=== PATIENT | female | born 2000 | race Hispanic/Latino ===

== ENCOUNTER 2018-04-09 18:25 | Inpatient (IN) | payer OTHER, SELFPAY ==
[~2018-04-09 18:25] MED LIST: ISOVUE-370 76%-LOCM 1 ML ONE
[2018-04-09] MEDS ORDERED: Acetaminophen 325 MG TAB ONE (18:38)
[2018-04-09] MEDS ORDERED: Ibuprofen 200 MG TAB ONE (18:38)
[2018-04-09] MEDS ORDERED: Ondansetron ODT 4 MG TAB ONE (18:46)
[2018-04-09 20:36] LABS: Anisocytosis SLIGHT = 6-15 cells (100X) (0-5/hpf); Band 11 % (5-11); Hemoglobin 10.6 g/dL (12.0-16.0); Hypochromia SLIGHT = 6-15 cells (100X) (0-5/hpf); Lymphocytes 3 % (28-48); MDiff Complete? YES; Mean Corpuscular HGB CONC 31.9 g/dL (32.0-36.0); Mean Corpuscular Hemoglobin 21.5 pg (25.0-35.0); Mean Corpuscular Volume 67.4 fL (78.0-98.0); Mean Platelet Volume 9.5 fL (7.4-10.4); Microcytosis SLIGHT = 6-15 cells (100X) (0-5/hpf); Monocytes 8 % (0-4); Neutrophil 78 % (31-61); PLT Morphology Comment Appears Increased; Platelet Count 428 thou/uL (130-400); Poikilocytosis SLIGHT = 6-15 cells (100X) (0-5/hpf); Red Blood Cell (RBC) Count 4.93 mill/uL (4.00-5.20); White Blood Cell (WBC) Count 29.3 thou/uL (4.8-10.8)
[2018-04-09 20:40] LABS: ALT (SGPT) 8 U/L (8-55); AST (SGOT) 19 U/L (5-30); Albumin 4.6 g/dL (3.5-5.0); Alkaline Phosphatase 125 U/L (40-150); Anion Gap 17 mmol/L (10-20); BUN (Urea Nitrogen) 7 mg/dL (8.4-21.0); Bilirubin, Total 0.4 mg/dL (0.2-1.2); Calc. Creatinine Clearance 0 mL/min (70-130); Calcium 9.4 mg/dL (7.8-10.44); Carbon Dioxide 20 mmol/L (22-29); Chloride 102 mmol/L (98-107); Estimated GFR-MDRD Greater than 90; Globulin 4.1 g/dL (2.4-3.5); Glucose 118 mg/dL (70-105); Potassium 3.7 mmol/L (3.5-5.1); Protein, Total 8.7 g/dL (6.0-8.3); Sodium 135 mmol/L (136-145)
--- NOTE | 2018-04-09 20:45 | RAD ---
PORTABLE UPRIGHT FRONTAL CHEST RADIOGRAPH: 04/09/2018 HISTORY: Fever. COMPARISON: None. FINDINGS: There is hazy, nonspecific increased density within the inferior two-thirds of the right hemithorax. There is an old postoperative and/or posttraumatic deformity involving the right posterior fifth and sixth ribs. There is no pneumothorax, pleural fluid, lobar consolidation, or alveolar edema. IMPRESSION: Hazy increased density is seen in the right hemithorax, which is felt to be either technical or chron ic in nature. A mild infiltrate cannot be excluded, but no focal consolidation or evidence of pulmon samy edema is seen. If clinically warranted, the chest could be better assessed with PA and lateral v iews. POS: [facility]
[2018-04-09 20:53] LABS: BHCG - Serum Negative (NEGATIVE); Pregs Control Background? CLEAR/WHITE (CLR/WHITE); Pregs Control Bar Appear? YES (CONTROL BAR)
[2018-04-09 21:20] LABS: Bilirubin Negative (Negative); Blood, Urine Negative (Negative); Clarity CLEAR (Clear); Glucose, Urine (Dipstick) Negative (Negative); Leukocyte Negative (Negative); Nitrite Negative (Negative); Protein, Urine (Dipstick) Negative (Neg-Trace); Specific Gravity, Urine 1.005 (1.002-1.036)
[2018-04-09] MEDS ORDERED: Fentanyl 100 MCG/2 ML VIAL ONE (21:36)
--- NOTE | 2018-04-09 22:16 | CT ---
CT ANGIOGRAM CHEST: 04/09/2018 HISTORY: Evaluate for pulmonary embolism. Chest pain. COMPARISON: None. TECHNIQUE: Axial CT imaging at 2.5 mm intervals, from the thoracic inlet through the upper abdomen, with IV cont rast, using CT angiogram protocol. Coronal and oblique sagittal 3D reformatted imaging obtained. FINDINGS: There is nonspecific distention of the esophagus, at the level of the thoracic inlet and near the reg ion of the gastroesophageal junction. In addition, there appears to be wall thickening and/or soft t issue prominence of the distal esophagus, at the gastroesophageal junction. Limited assessment of the upper abdomen appears grossly unremarkable. There is a rounded soft tissue density on axial image 81, within the medial left upper abdomen, measu ring 2.1 cm, which appears to represent a splenule. An adrenal lesion is a less likely possibility. There is no pneumothorax noted on either side. 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 There is no endobronchial lesion evident. There is no pneumothorax seen on either side. There is fo michelle bronchiectatic change and volume loss noted within the posterior medial aspect of the right upper lobe. There are hazy focal areas of pulmonary parenchymal opacity within the posterior aspect of the left u pper lobe, superiorly, best seen on image 38. Similar findings are noted within the infection aspect of the lingula. This could represent infectious pneumonitis, volume loss, scar, or aspiration. No focal consolidation. No evidence for pulmonary embolism. No lymphadenopathy in the chest. IMPRESSION: 1. Chronic/congenital findings, as detailed above. 2. Patchy areas of opacity noted in the left upper lobe, superiorly and inferiorly, suggesting infec tious pneumonitis/aspiration. 3. Follow-up imaging following treatment advised, to document resolut ion. 3. No evidence for pulmonary embolism. 4. Soft tissue density in the region of the junction of the esophagus and stomach, with distention o f the upper esophagus. Etiology is uncertain. Recommend direct visualization, via a nonemergent end oscopy. POS: [facility]
[2018-04-09] MEDS ORDERED: cefTRIAXone\\ROCEPHIN 2 GM VIAL ONE (22:30)
[2018-04-09] MEDS ORDERED: Azithromycin 500 MG VIAL ONE (22:46)
[2018-04-09] MEDS ORDERED: Ibuprofen 800 MG TAB ONE (23:38)
[2018-04-09] MEDS ORDERED: Albuterol Sulfate 2.5 mg/3 ml Neb NEB PRN (23:43)
[2018-04-09] MEDS ORDERED: Ondansetron PF 4 MG/2 ML Vial IVP PRN (23:44)
[2018-04-10] MEDS: Acetaminophen 325 MG TAB PO PRN ×2 (01:02→23:08)
[2018-04-10] MEDS: Sodium Chloride 0.9% 1,000 ML IV SCH ×3 (01:02→17:08)
[2018-04-10 01:53] VITALS: BMI 20.7
[2018-04-10 07:03] LABS: Anion Gap 11 mmol/L (10-20); BUN (Urea Nitrogen) 7 mg/dL (8.4-21.0); Calc. Creatinine Clearance 113 mL/min (70-130); Carbon Dioxide 19 mmol/L (22-29); Chloride 112 mmol/L (98-107); Estimated GFR-MDRD Greater than 90; Glucose 87 mg/dL (70-105); Potassium 3.8 mmol/L (3.5-5.1); Sodium 138 mmol/L (136-145)
[2018-04-10 07:04] LABS: #Basophils 0.1 thou/uL (0.0-0.2); #Lymphocytes 3.4 thou/uL (1.20-3.40); #Monocytes 2.7 thou/uL (0.11-0.59); #Neutrophils 19.3 thou/uL (1.40-6.50); %Basophils 0.3 % (0.0-1.0); %Eosinophils 0.1 % (0.0-10.0); %Lymphocytes 13.4 % (28.0-48.0); %Monocytes 10.5 % (0.0-4.0); %Neutrophils 75.7 % (31.0-61.0); Hemoglobin 8.4 g/dL (12.0-16.0); Mean Corpuscular HGB CONC 31.7 g/dL (32.0-36.0); Mean Corpuscular Volume 69.6 fL (78.0-98.0); Mean Platelet Volume 9.5 fL (7.4-10.4); Platelet Count 331 thou/uL (130-400); Red Blood Cell (RBC) Count 3.83 mill/uL (4.00-5.20); White Blood Cell (WBC) Count 25.6 thou/uL (4.8-10.8)
--- NOTE | 2018-04-10 07:27 | HP ---
PRIMARY CARE PHYSICIAN: The patient is a city call. CODE STATUS: FULL CODE. TIME OF EVALUATION: 2300 CHIEF COMPLAINT: Fever and shortness of breath. HISTORY OF PRESENT ILLNESS: This is a 17-year-old female patient with no significant past medical history except for some abnormality in the esophagus, got surgery in the past and some complicated pneumonia, but never had any problems after that event. That was 9 years ago. The patient came to the hospital after having fever, nausea, vomiting, chest wall pain that was worsened with deep inspiration. No alleviating factors. Symptoms were severe. The patient has also associated cough and scant sputum production. REVIEW OF SYSTEMS: CONSTITUTIONAL: The patient reported chills, fever, fatigue. RESPIRATORY: The patient reported cough, scant sputum production, shortness of breath. CARDIOVASCULAR: No chest pain, palpitation. GASTROINTESTINAL: No nausea, vomiting, diarrhea or abdominal pain. EXCHANGE CONSULTANT: Denies any headache or feeling lightheaded. GENITOURINARY: No burning with urination. EXTREMITIES: No leg swelling. All other systems reviewed and negative except for the findings mentioned above. PAST MEDICAL HISTORY: Positive for asthma. FAMILY HISTORY: Father has diabetes. Mother, none reported. SOCIAL HISTORY: The patient lives at home with the father and step-mother. PAST SURGICAL HISTORY: ____ at . Feeding tube placed and removed after . PSYCHIATRIC HISTORY: No previous psychiatric history. ALLERGIES: No known drug allergies. REPORTED MEDICATIONS: Rescue inhaler. PHYSICAL EXAMINATION: VITAL SIGNS: Blood pressure 121/77 with heart rate 103, respiratory rate was 20 , temperature 103.1, oxygen saturation 100 on room air. GENERAL APPEARANCE: The patient is alert, oriented, in mild distress due to symptoms. HEENT: Eyes; normal conjunctivae. Oral mucous membranes. Anicteric. NECK: No JVD. RESPIRATORY: Bilateral air entry is decreased. No rales. The patient has scattered wheezing. Symmetric expansion. CARDIOVASCULAR: The patient is tachycardic, regular rhythm. No murmurs, no gallops, no edema. ABDOMEN: Soft, normal bowel sounds. MUSCULOSKELETAL: Baseline range of motion and strength. No tenderness. SKIN: Warm and intact. No pallor, no rash or redness. Peripheral pulses are present. Capillary refill seems to be intact. NEUROLOGIC: No evidence of any new focal weakness. Cranial nerves seem to be intact. PSYCHIATRIC: The patient is in a good mood. No anxiety, oriented, optimal judgment. RADIOLOGY: A chest CT showed no pulmonary embolism. Left upper lobe pneumonia. Congenital dilation of the esophagus. LABORATORY DATA: Labs were reviewed. The patient had a white count 29.3 with hemoglobin 10.6, MCV 67, and platelet count 128. Sodium 135, potassium 3.7, chloride 102, carbon dioxide was 38, anion gap 17, BUN 7, creatinine 0.7, GFR greater than 90, glucose 118. Lactic acid 1.0, calcium 9.4, total bilirubin 0.4 , AST 19, ALT 8, alkaline phosphatase 125, serum total protein 8.7, albumin 4.6 , globulin 4.1, albumin globulin ratio is 1.1. Lipase 33 and serum test was negative. A urine was done only showed urine ketones that are most likely from starvation ketosis. ASSESSMENT AND PLAN: The patient will be placed in the hospital with following medical problems. 1. Sepsis. The patient has a white count of 29, the patient is tachycardic, source is pneumonia. The patient will be placed on broad spectrum antibiotics, we will follow cultures, we will adjust treatment as per sensitivity. 2. Left upper lobe pneumonia, treatment as above. 3. History of asthma. We will place the patient on steroids and nebulizers. monitor oxygen level. 4. Deep venous thrombosis prophylaxis. 5. Risk assessment, the patient is an asthmatic patient with sepsis and left upper lobe pneumonia putting her at high risk for complications. ANDRESD
[2018-04-10 07:32] LABS: Hypochromia SLIGHT = 6-15 cells (100X) (0-5/hpf); MDiff Complete? YES; Microcytosis SLIGHT = 6-15 cells (100X) (0-5/hpf); PLT Morphology Comment Appears Adequate; Polychromasia SLIGHT = 2-3 cells (100X) (0-2/hpf)
[2018-04-10] MEDS: Enoxaparin Sodium 40 MG/0.4 ML SYRINGE SC SCH (08:29)
[2018-04-10] MEDS: Piperacillin/Tazobactam 3.375 GM in Sodium Chloride 0.9% 100 ML IVPB SCH ×3 (10:32→21:44)
--- NOTE | 2018-04-10 16:10 | PDOC.PN ---
- Subjective Encounter Start Date: 04/10/18 Encounter Start Time: 16:08 Subjective: Feels much better. -: discussed the h/o esophageal dilatation with her -: discussed potential for aspiration - Objective Resuscitation Status: 04/10/18 12:25 Resuscitation Status Routine Resuscitation Status: FULL: Full Resuscitation Discussed with: per prior order MAR Reviewed: Yes Vital Signs & Weight: Vital Signs (12 hours) Temp Pulse Resp BP Pulse Ox 04/10/18 12:21 97.9 F 66 16 102/65 100 04/10/18 08:30 92/58 L 04/10/18 08:00 99 04/10/18 07:38 97.9 F 55 L 16 84/47 L 99 04/10/18 04:18 97.5 F L 71 16 90/57 L 97 Weight Weight 96 lb I&O: 04/09/18 04/10/18 04/11/18 06:59 06:59 06:59 Intake Total 1450 Balance 1450 Result Diagrams: 04/10/18 06:11 04/10/18 06:11 Additional Labs: Microbiology 04/09/18 21:58 Throat - Pending Group A Streptococcus Culture - Final 04/09/18 21:40 Throat - Pending Group A Streptococcus Screen (TONY) - Final 04/09/18 19:25 Nasal swab Influenza Types A,B Direct EIA - Final 04/09/18 20:08 Venous blood - Right Arm Blood Culture - Preliminary Specimen has been received and culture in progress. No Growth to date. 04/09/18 20:02 Venous blood - Left Arm Blood Culture - Preliminary Specimen has been received and culture in progress. No Growth to date. Laboratory Tests 04/09/18 04/10/18 20:08 06:11 WBC 29.3 H 25.6 H Hgb 10.6 L 8.4 L Phys Exam - Physical Examination Constitutional: NAD thin and frail looking HEENT: PERRLA, moist MMs, sclera anicteric, oral pharynx no lesions Neck: no nodes, no JVD, supple, full ROM Respiratory: no wheezing, no rales, no rhonchi, clear to auscultation bilateral Cardiovascular: RRR, no significant murmur, no rub Gastrointestinal: soft, non-tender, no distention, positive bowel sounds Musculoskeletal: no edema, pulses present Neurological: non-focal, normal sensation, moves all 4 limbs Psychiatric: normal affect, A&O x 3 Dx/Plan (1) Sepsis Code(s): A41.9 - SEPSIS, UNSPECIFIED ORGANISM Status: Acute (2) PNA (pneumonia) Code(s): J18.9 - PNEUMONIA, UNSPECIFIED ORGANISM Status: Acute Comment: aspiration Vs CAP (3) 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 - CONGENITAL MALFORMATION OF ESOPHAGUS, UNSPECIFIED Status: Chronic (4) Asthma Code(s): J45.909 - UNSPECIFIED ASTHMA, UNCOMPLICATED Status: Chronic Qualifiers: Asthma persistence: intermittent - Plan continue antibiotics, respiratory therapy, incentive spirometry, out of bed/ ambulate, DVT proph w/SCDs discussed w GEOLOGICAL AIDE.no evidence of aspiration on exam.no need for MBS -: will treat as CAP and add PPI for possible severe GERD from GE junction lax -: will need GI referral on DC for possible endoscopy -: pt appears thin and somewhat cachetic .suspect malnutrition from inadequat -: intake.pt reports that she can not swollow solids w/o difficulty? stricture * .HD stable * add mucinex.IS.nebs prn. Review of Systems - Review of Systems Constitutional: negative: fever, chills, sweats, weakness, malaise, other Respiratory: Cough. negative: Dry, Shortness of Breath, Hemoptysis, SOB with Excertion, Pleuritic Pain, Sputum, Wheezing Cardiovascular: negative: chest pain, palpitations, orthopnea, paroxysmal nocturnal dyspnea, edema, light headedness, other Gastrointestinal: negative: Nausea, Vomiting, Abdominal Pain, Diarrhea, Constipation, Melena, Hematochezia, Other Genitourinary: negative: Dysuria, Frequency, Incontinence, Hematuria, Retention , Other Musculoskeletal: negative: Neck Pain, Shoulder Pain, Arm Pain, Back Pain, Hand Pain, Leg Pain, Foot Pain, Other Skin: negative: Rash, Lesions, Pancho, Bruising, Other Neurological: negative: Weakness, Numbness, Incoordination, Change in Speech, Confusion, Seizures, Other - Medications/Allergies Allergies/Adverse Reactions: Allergies Allergy/AdvReac Type Severity Reaction Status Date / Time No Known Allergies Allergy Verified 04/10/18 01:44 Medications: Current Medications Acetaminophen (Tylenol) 650 mg PO Q4H PRN PRN Reason: Headache/Fever/Mild Pain (1-3) Last Admin: 04/10/18 01:02 Dose: 650 mg Albuterol Sulfate (Ventolin) 2.5 mg NEB Q6H PRN PRN Reason: Wheezing Enoxaparin Sodium (Lovenox) 40 mg SC 0900 [facility] Last Admin: 04/10/18 08:29 Dose: 40 mg Azithromycin 500 mg/ Sodium (Chloride) 250 mls @ 250 mls/hr IVPB Q24HR ANGÉLICA Sodium Chloride (Normal Saline 0.9%) 1,000 mls @ 125 mls/hr IV .Q8H [facility] Last Admin: 04/10/18 08:30 Dose: 1,000 mls Piperacillin Sod/Tazobactam (Sod 3.375 gm/ Sodium Chloride) 100 mls @ 200 mls/ hr IVPB 0400,1000,1600,2200 [facility] Last Admin: 04/10/18 10:32 Dose: 100 mls Ondansetron HCl (Zofran) 4 mg IVP Q6H PRN PRN Reason: Nausea/Vomiting Pantoprazole Sodium (Protonix) 40 mg PO DAILY ANGÉLICA
[2018-04-10] MEDS ORDERED: cefTRIAXone\\ROCEPHIN 1 GM in Sodium Chloride 0.9% 100 ML IVPB SCH (22:00)
[2018-04-10] MEDS ORDERED: Azithromycin 500 MG in Sodium Chloride 0.9% 250 ML 250 ML IVPB SCH (23:00)
[2018-04-11] MEDS: Piperacillin/Tazobactam 3.375 GM in Sodium Chloride 0.9% 100 ML IVPB SCH ×2 (03:18→09:37)
[2018-04-11] MEDS: Sodium Chloride 0.9% 1,000 ML IV SCH ×2 (03:19→14:36)
[2018-04-11 04:11] VITALS: TEMP 97.6
[2018-04-11 07:39] VITALS: BP 102/67
[2018-04-11] MEDS: Enoxaparin Sodium 40 MG/0.4 ML SYRINGE SC SCH (09:22)
[2018-04-11 10:24] LABS: #Basophils 0.1 thou/uL (0.0-0.2); #Eosinphils 0.1 thou/uL (0.0-0.7); #Lymphocytes 1.5 thou/uL (1.20-3.40); #Monocytes 0.6 thou/uL (0.11-0.59); #Neutrophils 5.8 thou/uL (1.40-6.50); %Basophils 0.7 % (0.0-1.0); %Lymphocytes 18.4 % (28.0-48.0); %Monocytes 7.9 % (0.0-4.0); Hemoglobin 9.2 g/dL (12.0-16.0); Mean Corpuscular HGB CONC 31.3 g/dL (32.0-36.0); Mean Corpuscular Hemoglobin 22.1 pg (25.0-35.0); Mean Corpuscular Volume 70.5 fL (78.0-98.0); Mean Platelet Volume 9.7 fL (7.4-10.4); Platelet Count 359 thou/uL (130-400); RBC Distribution Width 16.2 % (11.5-14.5); Red Blood Cell (RBC) Count 4.15 mill/uL (4.00-5.20)
--- NOTE | 2018-04-12 13:29 | DIS ---
DATE OF ADMISSION: 04/09/2018 DATE OF DISCHARGE: 04/11/2018 CONDITION AT THE TIME OF DISCHARGE: Stable. PRIMARY CARE PHYSICIAN: None. DISCHARGE DIAGNOSES: 1. Sepsis. 2. Community acquired pneumonia. 3. Suspected silent aspiration. 4. 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 DISCHARGE MEDICATIONS: 1. Florastor 250 p.o. daily for 14 days. 2. Protonix 40 mg daily. 3. Metronidazole 500 t.i.d. for 5 days. 4. Augmentin 875/125 b.i.d. for 7 days. PROCEDURES IN THE HOSPITAL: CT angio of the thorax which showed chronic congenital finding with nonspecific distention of esophagus at the level of thoracic inlet and near the region of the junction. There appears to be wall thickening and soft tissue prominence of the distal esophagus at the GE junction. There is no pulmonary embolism. Patchy opacity of the left upper lobe superiorly and inferiorly are seen, which suggest possible infectious pneumonitis versus aspiration. CONSULTATIONS: None. HISTORY OF PRESENT ILLNESS: Ms. Hinson is a 17-year-old female with history of some unknown type of congenital esophageal dilatation, which she reports she has undergone surgery when she was 6 or 7 years old who presented to the emergency room with complaints of fever and shortness of breath. She has been having fever, nausea, chest wall pain worsening with deep aspiration for 2 or 3 days duration. Upon presentation, she underwent a chest x-ray and a CT angio. She was 100% saturating on room air and was somewhat tachycardiac on presentation. CT angio was negative for PE, but showed left upper lobe pneumonia and congenital dilatation of the esophagus. She had leukocytosis with WBC of 29.3 upon presentation, lactic acid of 1 and test negative. She was admitted with the diagnosis of sepsis due to pneumonia and was started on broad spectrum IV antibiotics, IV fluids, and cultures were obtained. Please see admission history and physical for further detail. HOSPITAL COURSE: The patient had improvement in her symptoms quickly with IV antibiotics. All cultures were negative including influenza rapid screen and group A streptococcus throat culture. I had a suspicion that the patient may be having some aspiration because of laxity of the junction given her history of congenital dilatation of esophagus. Speech therapist was consulted who did not find any oropharyngeal signs of aspiration. Because of this reason, a barium swallow was not done. Suspicion of gastroesophageal reflux disease causing scaring and aspiration at night is not ruled out at this time. The patient was started on proton pump inhibitor and I have encouraged her to continue to take that and I am giving her referal for outpatient gastroenterology followup for formal evaluation and possibly endoscopy. The patient does give history of difficulty eating big pieces of meat which she feels sometimes getting stuck and she has managed and changed the diet around it. She appears thin and cachectic and seems to have iron deficiency anemia, and malabsorption and malnutrition is also suspected because of esophageal problems. For now, the patient is back to her baseline and is eager to go home and followup in an outpatient setting. She is hemodynamically stable with saturations of 97% on room air, blood pressure 102/67. Her WBC count has improved to 8000 from 29,000 and she will be discharged back home today. I have discussed the need for GI followup in detail with her and she verbalized understanding. She was seen and examined prior to discharge. PHYSICAL EXAMINATION: VITAL SIGNS: This morning, temperature 97.6, pulse of 92, respirations 20, saturating 97% on room air, blood pressure 102/67. GENERAL: No acute distress. Awake, alert, and oriented x3. Walking in the room. CHEST: Clear to auscultation bilaterally. Rate rhythm is regular. No murmurs appreciated. ABDOMEN: Soft, nontender, and nondistended. LABORATORY DATA: Lab examination: Blood culture remained negative till date. Discharge plan was discussed with the patient, who verbalized understanding. Job ID: [id number]
--- NOTE | 2018-04-14 20:20 | EKG ---
Test Reason : CP Blood Pressure : / mmHG Vent. Rate : 130 BPM Atrial Rate : 130 BPM P-R Int : 140 ms QRS Dur : 082 ms QT Int : 292 ms P-R-T Axes : 049 038 -24 degrees QTc Int : 429 ms Sinus tachycardia Possible Left atrial enlargement RSR' or QR pattern in V1 suggests right ventricular conduction delay T wave abnormality, consider inferior ischemia T wave abnormality, consider anterior ischemia Abnormal ECG Confirmed by BETY MONTEZ, JADA ([id number]), food expeditor OBI URIAS ([id number]) on 04/14/2018 8:19:59 PM Referred By: Confirmed By:JADA ALBERT MD
== END 2018-04-11 16:11 | disposition home or self-care (01) | DRG 871 ==
LOC: ERS 18:25 → T4-B 22:28
PROVIDERS: ADMIT Hospitalist; ATTEND Hospitalist
DX: A41.9 Sepsis, unspecified organism (principal); J18.9 Pneumonia, unspecified organism; Q39.5 Congenital dilatation of esophagus; E46 Unspecified protein-calorie malnutrition; R64 Cachexia; K90.9 Intestinal malabsorption, unspecified; K21.9 Gastro-esophageal reflux disease without esophagitis; D50.8 Other iron deficiency anemias; Z68.20 Body mass index [BMI] 20.0-20.9, adult; J45.20 Mild intermittent asthma, uncomplicated
CPT/HCPCS: 36415; 71045; 71275; 80048; 80053; 81003; 83605; 83690; 84703; 85025; 87040; 87081; 87430; 87804; 93005; 96361; 96365; 96375; G8996-GN-CI; G8997-GN-CI; J0456; J0696; J1650; J2543; J3010; J7050; Q0162

== ENCOUNTER 2020-06-23 11:30 | Emergency (ER) | payer BC, OTHER ==
[2020-06-23] MEDS ORDERED: Acetaminophen 500 MG TAB ONE (11:52)
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
== END 2020-06-23 13:08 | disposition home or self-care (01) ==
LOC: ERS 11:30
DX: S09.90XA Unspecified injury of head, initial encounter (principal); J45.909 Unspecified asthma, uncomplicated; Z79.51 Long term (current) use of inhaled steroids; V49.50XA Passenger injured in collision with unspecified motor vehicles in traffic accident, initial encounter
CPT/HCPCS: 70450